=== PATIENT | male | born 1975 | race African-American/Black ===

== ENCOUNTER 2022-04-18 00:27 | Inpatient (IN) | payer BC ==
[2022-04-18] MEDS ORDERED: Ondansetron PF 4 MG/2 ML Vial IVP PRN (02:06)
[2022-04-18] MEDS ORDERED: Morphine 4 MG/ML VIAL SLOW IVP PRN ×2 (02:06→02:15)
[2022-04-18] MEDS ORDERED: traMADol HCl 50 MG TAB PO PRN ×2 (02:06)
[2022-04-18] MEDS ORDERED: TETANUS, DIPHTHERIA TOX,ADULT (TDVAX) 0.5 ML VIAL IM ONE (02:06)
[2022-04-18] MEDS ORDERED: Ketorolac Tromethamine 30 MG/ML VIAL ONE (02:35)
[2022-04-18] MEDS ORDERED: Morphine 4 MG/ML VIAL ONE (02:35)
[2022-04-18] MEDS: Sodium Chloride 0.9% 1,000 ML IV SCH ×3 (04:18→20:18)
[2022-04-18 04:47] VITALS: BMI 28.2
[2022-04-18 05:28] LABS: SARS-CoV-2 NAA Rapid Test Not Detected (NotDetected)
[2022-04-18 06:05] LABS: #Basophils 0.1 thou/uL (0.0-0.2); #Lymphocytes 1.1 thou/uL (1.20-3.40); #Monocytes 1.2 thou/uL (0.11-0.59); #Neutrophils 13.1 thou/uL (1.40-6.50); %Basophils 0.4 % (0.0-1.0); %Lymphocytes 7.2 % (21.0-51.0); %Monocytes 7.5 % (0.0-10.0); %Neutrophils 84.9 % (42.0-75.0); Hemoglobin 13.9 g/dL (14.0-18.0); Mean Corpuscular HGB CONC 33.7 g/dL (32.0-36.0); Mean Corpuscular Hemoglobin 30.2 pg (27.0-31.0); Mean Corpuscular Volume 89.6 fl (78.0-98.0); Mean Platelet Volume 6.8 fL (7.4-10.4); Platelet Count 236 10x3/uL (130-400); RBC Distribution Width 12.1 % (11.5-14.5); White Blood Cell (WBC) Count 15.4 10x3/uL (4.8-10.8)
[2022-04-18] MEDS: Acetaminophen 500 MG TAB PO SCH ×3 (06:07→18:27)
[2022-04-18 06:13] LABS: PTT 25.2 sec (22.9-36.1); Prothrombin Time 13.5 sec (12.0-14.7)
[2022-04-18 06:24] LABS: Anion Gap 12 mmol/L (10-20); BUN (Urea Nitrogen) 9 mg/dL (8.9-20.6); Calc. Creatinine Clearance 131 mL/min (70-130); Calcium 8.6 mg/dL (7.8-10.44); Carbon Dioxide 23 mmol/L (22-29); Chloride 107 mmol/L (98-107); Estimated GFR 91; Glucose 117 mg/dL (70-105); Potassium 3.8 mmol/L (3.5-5.1); Sodium 138 mmol/L (136-145)
[2022-04-18] MEDS: Famotidine/PF 20 mg/2ml Vial SLOW IVP SCH ×2 (08:48→20:17)
[2022-04-18] MEDS ORDERED: Midazolam HCl 2 mg/2 ml Vial ONE (11:52)
[2022-04-18] MEDS ORDERED: fentaNYL PF 100 MCG/2 ML SYRINGE ONE ×2 (11:52→12:43)
[2022-04-18] MEDS ORDERED: CEFAZOLIN 2 GM in Sodium Chloride 0.9% 100 ML IVPB SCH (12:00)
[2022-04-18] MEDS ORDERED: Sodium Chloride 0.9% 100 ML ONE (12:05)
[2022-04-18] MEDS ORDERED: CEFAZOLIN 2 GM VIAL ONE (12:05)
[2022-04-18] MEDS ORDERED: Dexamethasone 20 MG/5 ML VIAL ONE (12:26)
[2022-04-18] MEDS ORDERED: Rocuronium Bromide 10 MG/ML (10ML VIAL) ONE (12:26)
[2022-04-18] MEDS ORDERED: Ondansetron PF 4 MG/2 ML Vial ONE (12:26)
[2022-04-18] MEDS ORDERED: Succinylcholine 200 MG/10 ml SYRINGE FS ONE (12:26)
[2022-04-18] MEDS ORDERED: PROPOFOL 200 MG/20 ML VIAL ONE (12:26)
[2022-04-18] MEDS ORDERED: SUGAMMADEX SODIUM 200 MG/2 ML VIAL ONE (13:21)
[2022-04-18] MEDS ORDERED: Meperidine HCl/PF 25 MG/ML VIAL ONE (13:53)
[2022-04-18] MEDS ORDERED: FENTANYL 50 MCG/ML 1 ML VIAL ONE ×2 (14:24→14:37)
[2022-04-18] MEDS: traMADol HCl 50 MG TAB PO SCH (18:26)
[2022-04-18] MEDS: traMADol HCl 50 MG TAB PO PRN (18:28)
[2022-04-18] MEDS: Senokot S 8.6-50 MG TAB PO SCH (20:18)
[2022-04-19] MEDS: traMADol HCl 50 MG TAB PO SCH ×3 (00:17→11:45)
[2022-04-19] MEDS: Acetaminophen 500 MG TAB PO SCH ×3 (00:17→11:45)
[2022-04-19] MEDS: CEFAZOLIN 2 GM in Sodium Chloride 0.9% 100 ML IVPB SCH ×2 (00:18→08:17)
[2022-04-19] MEDS: traMADol HCl 50 MG TAB PO PRN ×2 (05:34→11:45)
[2022-04-19] MEDS: Famotidine/PF 20 mg/2ml Vial SLOW IVP SCH (08:13)
[2022-04-19] MEDS: Senokot S 8.6-50 MG TAB PO SCH (08:13)
[2022-04-19] MEDS ORDERED: Polyethylene Glycol 3350 17 GM Packet PO SCH (09:00)
[2022-04-19] MEDS ORDERED: Enoxaparin Sodium 40 MG/0.4 ML SYRINGE SC SCH (09:00)
[2022-04-19 12:48] VITALS: BP 126/73; TEMP 98.3
== END 2022-04-19 17:15 | disposition home or self-care (01) | DRG 494 ==
LOC: ERS 00:27 → SURG B 02:11
PROVIDERS: ADMIT Specialist; ATTEND Surgery
PROC: 0QS Lower Bones, Reposition (ICD-10-PCS; principal; 2022-04-18)
DX: S82.852A Displaced trimalleolar fracture of left lower leg, initial encounter for closed fracture (principal); W13.8XXA Fall from, out of or through other building or structure, initial encounter; Z20.822 Contact with and (suspected) exposure to COVID-19; F17.210 Nicotine dependence, cigarettes, uncomplicated
CPT/HCPCS: 27818; 36415; 80048; 85025; 85610; 85730; 90714; 96374; 96375; 99156; 99157; C1713; C1776; J1100; J1650; J1885; J2175; J2250; J2270; J2405; J2704; J3010; J3490; J7050; S0028; U0002

== ENCOUNTER 2023-03-12 18:45 | Inpatient (IN) | payer BC ==
[2023-03-12] MEDS ORDERED: Ipratropium/Albuterol 3 ML NEB ONE (19:05)
[2023-03-12 19:10] LABS: Actual Bicarbonate (HCO3v) 24.6 mEq/L (22-28); Analyzer IN Cardio ER; Base Excess 2.7 mEq/L (-2.0 to +3.0); Chloride (VBG) 102 mmol/L (98-106); Hematocrit-VBG 38 % (42.0-52.0); Hemoglobin (Hb) 12.8 g/dL (13.1-17.2); Sodium 136 mmol/L (133-146); pH (venous) 7.534 (7.32-7.43)
[2023-03-12 19:16] LABS: #Basophils 0.1 thou/uL (0.0-0.2); #Monocytes 1.4 thou/uL (0.11-0.59); #Neutrophils 17.1 thou/uL (1.40-6.50); %Basophils 0.4 % (0.0-1.0); %Eosinophils 0.1 % (0.0-10.0); %Lymphocytes 7.6 % (21.0-51.0); %Monocytes 6.9 % (0.0-10.0); %Neutrophils 84.7 % (42.0-75.0); Hematocrit 35.1 % (42.0-52.0); Hemoglobin 11.8 g/dL (14.0-18.0); Mean Corpuscular HGB CONC 33.6 g/dL (32.0-36.0); Mean Corpuscular Hemoglobin 27.9 pg (27.0-31.0); Platelet Count 679 10x3/uL (130-400); RBC Distribution Width 15.9 % (11.5-14.5); Red Blood Cell (RBC) Count 4.23 mill/uL (4.70-6.10); White Blood Cell (WBC) Count 20.2 10x3/uL (4.8-10.8)
[2023-03-12] MEDS ORDERED: Sodium Chloride 0.9% 100 ML ONE (19:29)
[2023-03-12] MEDS ORDERED: Acetaminophen 325 MG Suppository ONE (19:29)
[2023-03-12] MEDS ORDERED: Cefepime 2 GM VIAL ONE (19:29)
[2023-03-12] MEDS ORDERED: Vancomycin (BATCH) 1.5 GM in Premix 1 BAG IVPB SCH (19:30)
[2023-03-12 19:46] LABS: ALT (SGPT) 20 U/L (8-55); AST (SGOT) 31 U/L (5-34); Albumin 3.5 g/dL (3.5-5.0); Alkaline Phosphatase 70 U/L (40-110); Anion Gap 17 mmol/L (10-20); BUN (Urea Nitrogen) 14 mg/dL (8.9-20.6); Bilirubin, Total Less than 0.2 mg/dL (0.2-1.2); Calc. Creatinine Clearance 0 mL/min (70-130); Calcium 9.3 mg/dL (7.8-10.44); Carbon Dioxide 25 mmol/L (22-29); Chloride 102 mmol/L (98-107); Estimated GFR 115; Glucose 112 mg/dL (70-105); Potassium 5.5 mmol/L (3.5-5.1); Protein, Total 8.5 g/dL (6.0-8.3); Sodium 138 mmol/L (136-145)
[2023-03-12] MEDS ORDERED: Morphine 2 MG/ML VIAL ONE (21:27)
[2023-03-12] MEDS ORDERED: Acetaminophen 650 MG Suppository PR PRN (22:07)
[2023-03-12] MEDS ORDERED: Ondansetron PF 4 MG/2 ML Vial IVP PRN (22:07)
[2023-03-12] MEDS: Dextrose 5%-Lactated Ringers 1,000 ML IV SCH (23:05)
[2023-03-12 23:20] LABS: Actual Bicarbonate (HCO3a) 28.3 mEq/L (22-28); Base Excess (BEa) 2.9 mEq/L (-2.0 to +3.0); CO2 Tension 47.1 mmHg (35.0-45.0); Carboxyhemoglobin (COHb) 0.3 gm% (0.0-3.0); Hematocrit-ABG 35 % (42.0-52.0); O2 Tension (PaO2), arterial 74.9 mmHg (80.0-100.0); Potassium - ABG Lab 4.01 mmol/L (3.70-5.30); pH, Arterial 7.397 (7.35-7.45)
[2023-03-12 23:22] LABS: ALV-art Gradient 65.865 mmHg (0-20); Puncture Site RR
[2023-03-12] MEDS ORDERED: Ipratropium/Albuterol 3 ML NEB NEB PRN (23:29)
[2023-03-12] MEDS ORDERED: Sodium Chloride 0.9% 500 ML IV SCH (23:59)
[2023-03-13] MEDS ORDERED: Vancomycin (BATCH) 1.5 GM in Premix 1 BAG IVPB SCH (04:00)
[2023-03-13 05:25] LABS: Actual Bicarbonate (HCO3v) 28.7 mEq/L (22-28); Base Excess 2.6 mEq/L (-2.0 to +3.0); Chloride (VBG) 104 mmol/L (98-106); Hematocrit-VBG 35 % (42.0-52.0); Potassium (VBG) 3.99 mmol/L (3.70-5.30); Sodium 140 mmol/L (133-146); pH (venous) 7.368 (7.32-7.43)
[2023-03-13] MEDS ORDERED: Piperacillin/Tazobactam 3.375 GM in Sodium Chloride 0.9% 100 ML IVPB SCH (06:00)
[2023-03-13 06:28] LABS: #Basophils 0.1 thou/uL (0.0-0.2); #Monocytes 1.1 thou/uL (0.11-0.59); #Neutrophils 11.6 thou/uL (1.40-6.50); %Basophils 0.4 % (0.0-1.0); %Eosinophils 0.1 % (0.0-10.0); %Lymphocytes 9.2 % (21.0-51.0); %Monocytes 7.8 % (0.0-10.0); %Neutrophils 82.1 % (42.0-75.0); Hematocrit 33.5 % (42.0-52.0); Hemoglobin 10.8 g/dL (14.0-18.0); Mean Corpuscular HGB CONC 32.2 g/dL (32.0-36.0); Mean Corpuscular Hemoglobin 27.1 pg (27.0-31.0); Mean Corpuscular Volume 84.2 fl (78.0-98.0); Mean Platelet Volume 9.1 fL (7.4-10.4); Platelet Count 600 10x3/uL (130-400); RBC Distribution Width 15.7 % (11.5-14.5); Red Blood Cell (RBC) Count 3.98 mill/uL (4.70-6.10); White Blood Cell (WBC) Count 14.1 10x3/uL (4.8-10.8)
[2023-03-13 07:08] LABS: Anion Gap 14 mmol/L (10-20); BUN (Urea Nitrogen) 9 mg/dL (8.9-20.6); Calc. Creatinine Clearance 157 mL/min (70-130); Calcium 9.1 mg/dL (7.8-10.44); Carbon Dioxide 27 mmol/L (22-29); Chloride 106 mmol/L (98-107); Estimated GFR 118; Glucose 98 mg/dL (70-105); Sodium 143 mmol/L (136-145)
[2023-03-13] MEDS: Dextrose 5%-Lactated Ringers 1,000 ML IV SCH (08:48)
[2023-03-13] MEDS ORDERED: Vancomycin 1 GM in Premix 1 BAG IVPB SCH (09:00)
[2023-03-13] MEDS ORDERED: Famotidine/PF 20 mg/2ml Vial SLOW IVP SCH (09:00)
[2023-03-13] MEDS: Piperacillin/Tazobactam 3.375 GM in Sodium Chloride 0.9% 100 ML IVPB SCH ×2 (10:09→16:58)
[2023-03-13] MEDS: Vancomycin (BATCH) 1.25 GM in Premix 1 BAG IVPB SCH ×2 (12:08→20:41)
[2023-03-13] MEDS ORDERED: Vancomycin (BATCH) 1.25 GM in Premix 1 BAG IVPB SCH (16:00)
[2023-03-13] MEDS: methylPREDNISolone Sod Succ 40 MG VIAL IVP SCH ×2 (16:58→23:14)
[2023-03-13] MEDS: Ipratropium/Albuterol 3 ML NEB NEB SCH (18:56)
[2023-03-13] MEDS: Metoprolol Tartrate 50 MG TAB PO SCH (20:41)
[2023-03-13] MEDS: tiZANidine HCl 4 MG TAB PO SCH (20:41)
[2023-03-14] MEDS: Piperacillin/Tazobactam 3.375 GM in Sodium Chloride 0.9% 100 ML IVPB SCH ×3 (02:33→18:08)
[2023-03-14] MEDS: Vancomycin (BATCH) 1.25 GM in Premix 1 BAG IVPB SCH (04:00)
[2023-03-14] MEDS: methylPREDNISolone Sod Succ 40 MG VIAL IVP SCH ×3 (05:09→11:30)
[2023-03-14 05:34] LABS: #Monocytes 0.2 thou/uL (0.11-0.59); #Neutrophils 10.4 thou/uL (1.40-6.50); %Basophils 0.2 % (0.0-1.0); %Lymphocytes 3.7 % (21.0-51.0); %Monocytes 1.4 % (0.0-10.0); %Neutrophils 94.3 % (42.0-75.0); Hematocrit 36.5 % (42.0-52.0); Hemoglobin 11.6 g/dL (14.0-18.0); Mean Corpuscular HGB CONC 31.8 g/dL (32.0-36.0); Mean Corpuscular Hemoglobin 26.9 pg (27.0-31.0); Mean Corpuscular Volume 84.7 fl (78.0-98.0); Mean Platelet Volume 8.9 fL (7.4-10.4); Platelet Count 591 10x3/uL (130-400); RBC Distribution Width 15.2 % (11.5-14.5); Red Blood Cell (RBC) Count 4.31 mill/uL (4.70-6.10)
[2023-03-14 05:58] LABS: Anion Gap 11 mmol/L (10-20); BUN (Urea Nitrogen) 6 mg/dL (8.9-20.6); Calc. Creatinine Clearance 157 mL/min (70-130); Calcium 9.9 mg/dL (7.8-10.44); Carbon Dioxide 33 mmol/L (22-29); Chloride 101 mmol/L (98-107); Estimated GFR 118; Glucose 114 mg/dL (70-105); Potassium 4.3 mmol/L (3.5-5.1); Sodium 141 mmol/L (136-145)
[2023-03-14] MEDS ORDERED: Vancomycin (BATCH) 1.25 GM in Premix 1 BAG IVPB SCH (06:00)
[2023-03-14 06:04] LABS: Vancomycin, Trough 16.2 ug/mL
[2023-03-14] MEDS: Ipratropium/Albuterol 3 ML NEB NEB SCH ×4 (07:08→19:11)
[2023-03-14] MEDS: Escitalopram Oxalate 10 mg Tablet PO SCH (08:06)
[2023-03-14] MEDS: metFORMIN 500 MG TAB PO SCH (08:06)
[2023-03-14] MEDS: Polyethylene Glycol 3350 17 GM Packet PO SCH (08:06)
[2023-03-14] MEDS: Atorvastatin Calcium 40 MG TAB PO SCH (08:06)
[2023-03-14] MEDS: Metoprolol Tartrate 50 MG TAB PO SCH ×2 (08:07→21:18)
[2023-03-14] MEDS ORDERED: Pantoprazole 40 MG VIAL IVP SCH (09:00)
[2023-03-14] MEDS ORDERED: Artificial Tear Sol 15 ML BOT EA EYE PRN (18:47)
[2023-03-14] MEDS: tiZANidine HCl 4 MG TAB PO SCH (20:28)
[2023-03-15] MEDS: Piperacillin/Tazobactam 3.375 GM in Sodium Chloride 0.9% 100 ML IVPB SCH ×2 (01:28→09:31)
[2023-03-15] MEDS: methylPREDNISolone Sod Succ 40 MG VIAL IVP SCH ×2 (01:28→12:19)
[2023-03-15 04:53] LABS: #Monocytes 0.3 thou/uL (0.11-0.59); #Neutrophils 9.4 thou/uL (1.40-6.50); %Basophils 0.2 % (0.0-1.0); %Eosinophils 0.1 % (0.0-10.0); %Lymphocytes 6.5 % (21.0-51.0); %Monocytes 2.4 % (0.0-10.0); %Neutrophils 90.5 % (42.0-75.0); Hematocrit 33.6 % (42.0-52.0); Hemoglobin 10.9 g/dL (14.0-18.0); Mean Corpuscular HGB CONC 32.4 g/dL (32.0-36.0); Mean Corpuscular Hemoglobin 27.2 pg (27.0-31.0); Mean Corpuscular Volume 83.8 fl (78.0-98.0); Mean Platelet Volume 8.6 fL (7.4-10.4); Platelet Count 553 10x3/uL (130-400); Red Blood Cell (RBC) Count 4.01 mill/uL (4.70-6.10); White Blood Cell (WBC) Count 10.4 10x3/uL (4.8-10.8)
[2023-03-15 05:21] LABS: Anion Gap 13 mmol/L (10-20); BUN (Urea Nitrogen) 9 mg/dL (8.9-20.6); Calc. Creatinine Clearance 144 mL/min (70-130); Calcium 9.2 mg/dL (7.8-10.44); Carbon Dioxide 29 mmol/L (22-29); Chloride 103 mmol/L (98-107); Estimated GFR 115; Glucose 109 mg/dL (70-105); Potassium 3.8 mmol/L (3.5-5.1); Sodium 141 mmol/L (136-145); Vancomycin, Trough 6.3 ug/mL
[2023-03-15] MEDS: Ipratropium/Albuterol 3 ML NEB NEB SCH ×4 (07:00→18:27)
[2023-03-15] MEDS: Polyethylene Glycol 3350 17 GM Packet PO SCH (08:23)
[2023-03-15] MEDS: metFORMIN 500 MG TAB PO SCH (08:23)
[2023-03-15] MEDS: Lansoprazole 15 MG/5 ML (BATCHED)UDCUP PER TUBE SCH (08:23)
[2023-03-15] MEDS: Escitalopram Oxalate 10 mg Tablet PO SCH (08:23)
[2023-03-15] MEDS: Metoprolol Tartrate 50 MG TAB PO SCH ×2 (08:23→20:15)
[2023-03-15] MEDS: Atorvastatin Calcium 40 MG TAB PO SCH (08:23)
[2023-03-15] MEDS ORDERED: Maxitrol 0.1% Opth 5 ML BOT EA EYE SCH (12:00)
[2023-03-15] MEDS: Erythromycin Base 0.5% Oint 1 GM TUBE EA EYE SCH ×3 (12:18→20:15)
[2023-03-15] MEDS: Maxitrol 0.1% Opth 5 ML BOT L EYE SCH ×2 (12:24→12:25)
[2023-03-15] MEDS ORDERED: Erythromycin Base 0.5% Oint 1 GM TUBE EA EYE SCH (13:00)
[2023-03-15] MEDS: [UNRECOGNIZED DRUG - OTHER] L EYE SCH ×5 (13:55→22:17)
[2023-03-15] MEDS: NEOMYCIN L EYE SCH ×5 (13:55→22:17)
[2023-03-15] MEDS: DEXAMETHASONE L EYE SCH ×5 (13:55→22:17)
[2023-03-15] MEDS: Amoxicillin/Potassium Clav 600 mg/5 ml Oral Suspension PER TUBE SCH (20:15)
[2023-03-15] MEDS: tiZANidine HCl 4 MG TAB PO SCH (20:15)
[2023-03-16] MEDS: DEXAMETHASONE L EYE SCH ×12 (00:33→20:04)
[2023-03-16] MEDS: methylPREDNISolone Sod Succ 40 MG VIAL IVP SCH ×2 (00:33→12:10)
[2023-03-16] MEDS: NEOMYCIN L EYE SCH ×12 (00:33→20:04)
[2023-03-16] MEDS: [UNRECOGNIZED DRUG - OTHER] L EYE SCH ×12 (00:33→20:04)
[2023-03-16] MEDS: Erythromycin Base 0.5% Oint 1 GM TUBE EA EYE SCH ×6 (00:34→20:46)
[2023-03-16 07:01] LABS: #Monocytes 0.3 thou/uL (0.11-0.59); #Neutrophils 7.4 thou/uL (1.40-6.50); %Basophils 0.3 % (0.0-1.0); %Lymphocytes 10.5 % (21.0-51.0); %Monocytes 3.3 % (0.0-10.0); %Neutrophils 85.7 % (42.0-75.0); Mean Corpuscular HGB CONC 32.4 g/dL (32.0-36.0); Mean Corpuscular Volume 83.3 fl (78.0-98.0); Mean Platelet Volume 9.2 fL (7.4-10.4); Platelet Count 603 10x3/uL (130-400); RBC Distribution Width 15.2 % (11.5-14.5); Red Blood Cell (RBC) Count 4.44 mill/uL (4.70-6.10); White Blood Cell (WBC) Count 8.7 10x3/uL (4.8-10.8)
[2023-03-16] MEDS: Ipratropium/Albuterol 3 ML NEB NEB SCH ×4 (07:23→19:21)
[2023-03-16 08:08] LABS: Anion Gap 15 mmol/L (10-20); BUN (Urea Nitrogen) 9 mg/dL (8.9-20.6); Calc. Creatinine Clearance 157 mL/min (70-130); Calcium 9.3 mg/dL (7.8-10.44); Carbon Dioxide 29 mmol/L (22-29); Chloride 102 mmol/L (98-107); Estimated GFR 118; Glucose 111 mg/dL (70-105); Potassium 4.1 mmol/L (3.5-5.1); Sodium 142 mmol/L (136-145)
[2023-03-16] MEDS: Atorvastatin Calcium 40 MG TAB PO SCH (09:01)
[2023-03-16] MEDS: Metoprolol Tartrate 50 MG TAB PO SCH ×2 (09:01→20:45)
[2023-03-16] MEDS: Escitalopram Oxalate 10 mg Tablet PO SCH (09:01)
[2023-03-16] MEDS: metFORMIN 500 MG TAB PO SCH (09:01)
[2023-03-16] MEDS: Lansoprazole 15 MG/5 ML (BATCHED)UDCUP PER TUBE SCH (09:01)
[2023-03-16] MEDS: Amoxicillin/Potassium Clav 600 mg/5 ml Oral Suspension PER TUBE SCH ×2 (09:02→20:45)
[2023-03-16] MEDS: Polyethylene Glycol 3350 17 GM Packet PO SCH (09:02)
[2023-03-16 12:33] VITALS: BP 132/90
[2023-03-16] MEDS: tiZANidine HCl 4 MG TAB PO SCH (20:46)
[2023-03-17] MEDS: methylPREDNISolone Sod Succ 40 MG VIAL IVP SCH (01:28)
[2023-03-17] MEDS: Erythromycin Base 0.5% Oint 1 GM TUBE EA EYE SCH ×6 (01:28→21:13)
[2023-03-17 06:55] LABS: #Basophils 0.1 thou/uL (0.0-0.2); #Eosinphils 0.1 thou/uL (0.0-0.7); #Monocytes 0.9 thou/uL (0.11-0.59); #Neutrophils 5.3 thou/uL (1.40-6.50); %Basophils 0.9 % (0.0-1.0); %Eosinophils 0.6 % (0.0-10.0); %Lymphocytes 34.3 % (21.0-51.0); %Monocytes 8.9 % (0.0-10.0); %Neutrophils 55.1 % (42.0-75.0); Hematocrit 37.4 % (42.0-52.0); Hemoglobin 11.9 g/dL (14.0-18.0); Mean Corpuscular HGB CONC 31.8 g/dL (32.0-36.0); Mean Corpuscular Hemoglobin 26.6 pg (27.0-31.0); Mean Corpuscular Volume 83.7 fl (78.0-98.0); Mean Platelet Volume 8.8 fL (7.4-10.4); Platelet Count 558 10x3/uL (130-400); RBC Distribution Width 15.2 % (11.5-14.5); Red Blood Cell (RBC) Count 4.47 mill/uL (4.70-6.10); White Blood Cell (WBC) Count 9.7 10x3/uL (4.8-10.8)
[2023-03-17 07:22] LABS: Anion Gap 13 mmol/L (10-20); BUN (Urea Nitrogen) 9 mg/dL (8.9-20.6); Calc. Creatinine Clearance 155 mL/min (70-130); Calcium 9.8 mg/dL (7.8-10.44); Carbon Dioxide 30 mmol/L (22-29); Chloride 102 mmol/L (98-107); Estimated GFR 119; Glucose 82 mg/dL (70-105); Potassium 3.7 mmol/L (3.5-5.1); Sodium 141 mmol/L (136-145)
[2023-03-17] MEDS: Ipratropium/Albuterol 3 ML NEB NEB SCH ×4 (07:34→19:10)
[2023-03-17] MEDS: DEXAMETHASONE L EYE SCH ×4 (09:26→19:49)
[2023-03-17] MEDS: [UNRECOGNIZED DRUG - OTHER] L EYE SCH ×4 (09:26→19:49)
[2023-03-17] MEDS: NEOMYCIN L EYE SCH ×4 (09:26→19:49)
[2023-03-17] MEDS: Polyethylene Glycol 3350 17 GM Packet PO SCH (09:27)
[2023-03-17] MEDS: Escitalopram Oxalate 10 mg Tablet PO SCH (09:28)
[2023-03-17] MEDS: Lansoprazole 15 MG/5 ML (BATCHED)UDCUP PER TUBE SCH (09:28)
[2023-03-17] MEDS: Amoxicillin/Potassium Clav 600 mg/5 ml Oral Suspension PER TUBE SCH ×2 (09:28→21:13)
[2023-03-17] MEDS: metFORMIN 500 MG TAB PO SCH (09:28)
[2023-03-17] MEDS: Atorvastatin Calcium 40 MG TAB PO SCH (09:28)
[2023-03-17] MEDS: predniSONE 20 MG TAB PER TUBE SCH (09:28)
[2023-03-17] MEDS: Metoprolol Tartrate 50 MG TAB PO SCH ×2 (09:28→21:13)
[2023-03-17] MEDS: tiZANidine HCl 4 MG TAB PO SCH (21:13)
[2023-03-18 05:07] LABS: #Basophils 0.1 thou/uL (0.0-0.2); #Eosinphils 0.1 thou/uL (0.0-0.7); #Monocytes 0.7 thou/uL (0.11-0.59); %Basophils 0.5 % (0.0-1.0); %Eosinophils 0.6 % (0.0-10.0); %Lymphocytes 28.7 % (21.0-51.0); %Monocytes 7.6 % (0.0-10.0); %Neutrophils 62.3 % (42.0-75.0); Hematocrit 37.9 % (42.0-52.0); Hemoglobin 12.4 g/dL (14.0-18.0); Mean Corpuscular HGB CONC 32.7 g/dL (32.0-36.0); Mean Corpuscular Hemoglobin 27.3 pg (27.0-31.0); Mean Corpuscular Volume 83.5 fl (78.0-98.0); Mean Platelet Volume 8.7 fL (7.4-10.4); Platelet Count 538 10x3/uL (130-400); RBC Distribution Width 15.1 % (11.5-14.5); Red Blood Cell (RBC) Count 4.54 mill/uL (4.70-6.10); White Blood Cell (WBC) Count 9.6 10x3/uL (4.8-10.8)
[2023-03-18 05:38] LABS: Anion Gap 15 mmol/L (10-20); BUN (Urea Nitrogen) 10 mg/dL (8.9-20.6); Calc. Creatinine Clearance 146 mL/min (70-130); Calcium 9.6 mg/dL (7.8-10.44); Carbon Dioxide 29 mmol/L (22-29); Chloride 100 mmol/L (98-107); Estimated GFR 117; Glucose 81 mg/dL (70-105); Potassium 3.9 mmol/L (3.5-5.1); Sodium 140 mmol/L (136-145)
[2023-03-18] MEDS: Ipratropium/Albuterol 3 ML NEB NEB SCH ×4 (07:33→19:06)
[2023-03-18] MEDS: Erythromycin Base 0.5% Oint 1 GM TUBE EA EYE SCH ×6 (07:49→21:06)
[2023-03-18] MEDS: predniSONE 20 MG TAB PER TUBE SCH (08:57)
[2023-03-18] MEDS: metFORMIN 500 MG TAB PO SCH (08:57)
[2023-03-18] MEDS: Atorvastatin Calcium 40 MG TAB PO SCH (08:57)
[2023-03-18] MEDS: Metoprolol Tartrate 50 MG TAB PO SCH ×2 (08:57→21:06)
[2023-03-18] MEDS: Escitalopram Oxalate 10 mg Tablet PO SCH (08:57)
[2023-03-18] MEDS: DEXAMETHASONE L EYE SCH ×7 (08:58→20:43)
[2023-03-18] MEDS: [UNRECOGNIZED DRUG - OTHER] L EYE SCH ×7 (08:58→20:43)
[2023-03-18] MEDS: NEOMYCIN L EYE SCH ×7 (08:58→20:43)
[2023-03-18] MEDS: Polyethylene Glycol 3350 17 GM Packet PO SCH (09:00)
[2023-03-18] MEDS: Amoxicillin/Potassium Clav 600 mg/5 ml Oral Suspension PER TUBE SCH ×2 (10:43→21:00)
[2023-03-18] MEDS: Lansoprazole 15 MG/5 ML (BATCHED)UDCUP PER TUBE SCH (10:43)
[2023-03-18 11:53] VITALS: BMI 20.5
[2023-03-18] MEDS: tiZANidine HCl 4 MG TAB PO SCH (21:06)
[2023-03-19] MEDS: DEXAMETHASONE L EYE SCH ×4 (02:09→07:30)
[2023-03-19] MEDS: [UNRECOGNIZED DRUG - OTHER] L EYE SCH ×4 (02:09→07:30)
[2023-03-19] MEDS: Erythromycin Base 0.5% Oint 1 GM TUBE EA EYE SCH ×3 (02:09→08:25)
[2023-03-19] MEDS: NEOMYCIN L EYE SCH ×4 (02:09→07:30)
[2023-03-19] MEDS: Ipratropium/Albuterol 3 ML NEB NEB SCH ×2 (06:53→10:31)
[2023-03-19 07:01] LABS: #Basophils 0.1 thou/uL (0.0-0.2); #Eosinphils 0.1 thou/uL (0.0-0.7); #Monocytes 0.7 thou/uL (0.11-0.59); #Neutrophils 6.7 thou/uL (1.40-6.50); %Basophils 0.6 % (0.0-1.0); %Eosinophils 0.6 % (0.0-10.0); %Lymphocytes 30.3 % (21.0-51.0); %Monocytes 6.8 % (0.0-10.0); %Neutrophils 61.4 % (42.0-75.0); Hematocrit 38.1 % (42.0-52.0); Hemoglobin 12.4 g/dL (14.0-18.0); Mean Corpuscular HGB CONC 32.5 g/dL (32.0-36.0); Mean Platelet Volume 8.6 fL (7.4-10.4); Platelet Count 485 10x3/uL (130-400); RBC Distribution Width 15.1 % (11.5-14.5); Red Blood Cell (RBC) Count 4.59 mill/uL (4.70-6.10); White Blood Cell (WBC) Count 10.8 10x3/uL (4.8-10.8)
[2023-03-19 07:37] LABS: Anion Gap 12 mmol/L (10-20); BUN (Urea Nitrogen) 12 mg/dL (8.9-20.6); Calc. Creatinine Clearance 154 mL/min (70-130); Calcium 9.6 mg/dL (7.8-10.44); Carbon Dioxide 31 mmol/L (22-29); Chloride 99 mmol/L (98-107); Estimated GFR 119; Glucose 80 mg/dL (70-105); Potassium 3.5 mmol/L (3.5-5.1); Sodium 138 mmol/L (136-145)
[2023-03-19 08:08] VITALS: TEMP 97.7
[2023-03-19] MEDS: Polyethylene Glycol 3350 17 GM Packet PO SCH (08:23)
[2023-03-19] MEDS: metFORMIN 500 MG TAB PO SCH (08:23)
[2023-03-19] MEDS: Escitalopram Oxalate 10 mg Tablet PO SCH (08:24)
[2023-03-19] MEDS: predniSONE 20 MG TAB PER TUBE SCH (08:24)
[2023-03-19] MEDS: Metoprolol Tartrate 50 MG TAB PO SCH (08:24)
[2023-03-19] MEDS: Atorvastatin Calcium 40 MG TAB PO SCH (08:24)
[2023-03-19] MEDS: Lansoprazole 15 MG/5 ML (BATCHED)UDCUP PER TUBE SCH (08:27)
[2023-03-19] MEDS: Amoxicillin/Potassium Clav 600 mg/5 ml Oral Suspension PER TUBE SCH (08:27)
== END 2023-03-19 10:43 | DRG 871 ==
LOC: ERS 18:45 → IMCU/EMU 21:06
PROVIDERS: ADMIT Student in an Organized Health Care Education/Training Program; ATTEND Family Medicine
PROC: 4A033R1 Measurement of Arterial Saturation, Peripheral, Percutaneous Approach (ICD-10-PCS; principal; 2023-03-12)
PROC: 3E03329 Introduction of Other Anti-infective into Peripheral Vein, Percutaneous Approach (ICD-10-PCS; 2023-03-12)
PROC: 5A09357 Assistance with Respiratory Ventilation, Less than 24 Consecutive Hours, Continuous Positive Airway Pressure (ICD-10-PCS; 2023-03-12)
DX: A41.9 Sepsis, unspecified organism (principal); J18.9 Pneumonia, unspecified organism; J69.0 Pneumonitis due to inhalation of food and vomit; E87.20 Acidosis, unspecified; I69.351 Hemiplegia and hemiparesis following cerebral infarction affecting right dominant side; E87.3 Alkalosis; E87.5 Hyperkalemia; I10 Essential (primary) hypertension; K21.9 Gastro-esophageal reflux disease without esophagitis; D75.839 Thrombocytosis, unspecified; Z79.82 Long term (current) use of aspirin; Z79.899 Other long term (current) drug therapy; I69.320 Aphasia following cerebral infarction; Z93.1 Gastrostomy status
CPT/HCPCS: 36415; 71045; 80048; 80202; 82805; 83605; 84145; 85025; 87040; 87081; 93005; 94640; 94660; 96365; 96366; 96367; 96375; C9113; J0692; J1650; J2272; J2543; J2920; J3370; J3490; J7030; J7512; J7620; S0028